=== PATIENT | female | born 1935 | race Caucasian/White ===

== ENCOUNTER → 2017-07-26 | Outpatient (CLI) | payer MEDICARE, OTHER ==
[2017-07-26 19:28] LABS: PROTHROMBIN TIME 68.3 Seconds (9.6-11.5)
[2017-07-26 19:29] LABS: INTERNATIONAL NORMALIZED RATIO 6.82 (0.93-1.1)
== END ==
LOC: RAD 18:43
PROVIDERS: ATTEND Nurse Practitioner
DX: R79.1 Abnormal coagulation profile (principal)
CPT/HCPCS: 36415; 85610